=== PATIENT | female | born 1995 ===

== ENCOUNTER 2021-07-22 21:32 | Outpatient (CLI) | payer OTHER ==
[2021-07-23] MEDS ORDERED: MORPHINE 4 MG/1 ML INJ IM ONE (00:53)
--- NOTE | 2021-07-23 02:24 | Ultrasound Report ---
ULTRASOUND OBSTETRIC INDICATION: Evaluate amniotic fluid index and estimated weight. Clinical Gestational Age (GA): 38.0 weeks TECHNIQUE: Transabdominal. COMPARISON: None available. FINDINGS: There is a single intrauterine . Biparietal Diameter = 8.8 cm = 35 weeks, 4 day(s). Head Circumference = 32.4 cm = 36 weeks, 4 day(s). Abdominal Circumference = 34.0 cm = 37 weeks, 6 day(s). Femur Length = 7.0 cm = 36 weeks, 1 day(s). Average Ultrasound Age (AUA) = 36 weeks, 4 day(s). Heart Rate: 144 beats per minute. Estimated Weight in grams (if calculated): 3097 Estimated Weight Growth Percentile (if calculated): 37 Position: cephalic. Cervix: closed. Length in cm (if measured): Not measured Placenta: Not well-visualized. Amniotic Fluid Volume: normal Amniotic Fluid Index (GLORIA) in cm (if calculated): 8.4. Maternal Adnexa: No significant abnormality. IMPRESSION: 1. Single, living intrauterine with estimated sonographic age of 36 weeks, 4 day(s). 2. Normal amniotic fluid index of 8.4 cm. 3. Estimated weight of 3097 g Signer Name: Leonel Brooks MD Signed: 07/23/2021 2:20 AM Workstation Name: [id number]
== END 2021-07-23 03:00 | disposition home or self-care (01) ==
LOC: TRG 21:32 → APU 21:45 → TRG 07-23 03:00
PROVIDERS: ATTEND Obstetrics & Gynecology Gynecology
DX: Z34.93 Encounter for supervision of normal pregnancy, unspecified, third trimester (principal); Z3A.37 37 weeks gestation of pregnancy
CPT/HCPCS: 59025; 76816